=== PATIENT | female | born 1945 | race Hispanic/Latino ===

== ENCOUNTER 2017-07-07 14:47 | Inpatient (IN) | payer OTHER ==
[~2017-07-07] VITALS: Ht 162.6 cm; Wt 113.5 kg
[2017-07-07] MEDS ORDERED: METOPROLOL TARTRATE 1 MG/ML 5ML VIAL IV ONE (15:22)
[2017-07-07 15:56] LABS: BASOPHILS % (AUTO) 0.3 % (0.0-5.0); EOSINOPHILS % (AUTO) 0.4 % (0.0-8.0); HEMATOCRIT 30.7 % (36-48); LYMPHOCYTES % (AUTO) 5.6 % (21.0-51.0); MEAN CORPUSCULAR HEMOGLOBIN 33.8 pg (27.0-33.0); MEAN CORPUSCULAR HGB CONC 33.9 g/dL (32.0-36.0); MEAN CORPUSCULAR VOLUME 99.6 fL (79-99); MONOCYTES % (AUTO) 8.7 % (3.0-13.0); NUCLEATED RED BLOOD CELLS 0.2 % (0.0-0.19); PLATELET COUNT (AUTO) 175 K/uL (130-400); RED BLOOD CELL COUNT(AUTO) 3.08 MIL/uL (4.00-5.50); RED CELL DISTRIBUTION WIDTH 20.5 % (11.0-15.5); WHITE BLOOD COUNT (AUTO) 6.4 K/uL (4.8-10.8)
[2017-07-07 16:11] LABS: INR 1.14 (0.85-1.15); PARTIAL THROMBOPLASTIN TIME 31.4 SEC (26.3-35.5); PROTHROMBIN TIME 11.9 SEC (9.6-11.6)
[2017-07-07 16:12] LABS: CREATININE 2.6 mg/dL (0.5-1.5); POTASSIUM 3.8 mmol/L (3.5-5.1)
[2017-07-07 16:27] LABS: ALBUMIN 2.6 g/dL (3.5-5.0); BILIRUBIN,TOTAL 1.2 mg/dL (0.2-1.0); CREATINE KINASE MB 1.5 ng/mL (0.5-3.6); TOTAL PROTEIN, SERUM 8.2 g/dL (6.0-8.3)
[2017-07-07 16:37] LABS: APPEARANCE,URINE Turbid (CLEAR); BILIRUBIN,URINE Moderate (NEGATIVE); COLOR,URINE Dark Yellow (YELLOW); GLUCOSE, URINE (UA) Negative (NEGATIVE); KETONES,URINE Negative (NEGATIVE); LEUKOCYTE ESTERASE ,URINE Large (NEGATIVE); NITRATE,URINE Positive (NEGATIVE); OCCULT BLOOD,URINE Large (NEGATIVE); PROTEIN,URINE POS 2+ (NEGATIVE)
[2017-07-07 16:45] LABS: BACTERIA,URINE Moderate /HPF (None Seen); WBC,URINE Full Field /HPF (0-1); YEAST,URINE BUDDING Moderate /HPF (None Seen)
[2017-07-07 16:46] LABS: RENAL EPITHELIAL CELLS,URINE Few /LPF (None Seen); TRANSITIONAL EPI CELLS,URINE Rare /LPF (None Seen)
[2017-07-07] MEDS ORDERED: ENOXAPARIN SODIUM 100 MG/1 ML SQ ONE (16:55)
[2017-07-07] MEDS ORDERED: ASPIRIN 325 MG TABLET ONE (16:56)
[2017-07-07] MEDS ORDERED: CEFTRIAXONE SODIUM 1 GM ONE (16:56)
[2017-07-07 18:52] VITALS: BP 113/68
[2017-07-07] MEDS ORDERED: ACETAMINOPHEN 325 MG TAB PO PRN (20:45)
[2017-07-07] MEDS: METOPROLOL TARTRATE 25 MG TAB PO SCH (21:21)
[2017-07-07] MEDS ORDERED: CEFTRIAXONE 1GM/D5W 50ML 50 ML IV SCH (21:45)
[2017-07-07 22:14] LABS: HEMOGLOBIN A1C 7.1 % (4.0-6.0)
[2017-07-07 22:42] LABS: CREATINE KINASE MB 1.7 ng/mL (0.5-3.6); TROPONIN I 0.1 ng/mL (0.00-0.06)
[2017-07-07 23:39] VITALS: BP 101/53
[2017-07-07] MEDS: CEFTRIAXONE SODIUM 1 GM IVP SCH (23:45)
[2017-07-08 03:46] LABS: HEMATOCRIT 30.6 % (36-48); MEAN CORPUSCULAR HEMOGLOBIN 33.7 pg (27.0-33.0); MEAN CORPUSCULAR HGB CONC 33.9 g/dL (32.0-36.0); MEAN CORPUSCULAR VOLUME 99.3 fL (79-99); NUCLEATED RED BLOOD CELLS 0.3 % (0.0-0.19); PLATELET COUNT (AUTO) 180 K/uL (130-400); RED BLOOD CELL COUNT(AUTO) 3.08 MIL/uL (4.00-5.50); RED CELL DISTRIBUTION WIDTH 20.3 % (11.0-15.5); WHITE BLOOD COUNT (AUTO) 5.8 K/uL (4.8-10.8)
[2017-07-08 04:08] VITALS: BP 117/63
[2017-07-08 04:16] LABS: CREATINE KINASE MB 1.6 ng/mL (0.5-3.6); CREATININE 2.7 mg/dL (0.5-1.5); POTASSIUM 3.6 mmol/L (3.5-5.1); THYROID STIMULATING HORMONE 4.37 uIU/mL (0.36-3.74); TROPONIN I 0.08 ng/mL (0.00-0.06)
[2017-07-08 05:04] LABS: ABG BASE EXCESS 1.9 mmol/L (-2.0-3.0); ABG HCO3 28.2 mmol/L (21.0-28.0); ABG OXYGEN SATURATION 97.3 % (95.0-99.0); ABG PCO2 50 mmHg (32-45)
[2017-07-08] MEDS: FUROSEMIDE 10 MG/ML 4ML VIAL IV SCH ×3 (05:30→16:19)
[2017-07-08 07:00] VITALS: BP_SYST 125; BP_SYST 148; BP_DIAS 71; BP_DIAS 78
[2017-07-08] MEDS: ONDANSETRON HCL 4 MG/2 ML VIAL IVP PRN ×2 (08:06→16:19)
[2017-07-08] MEDS: ASPIRIN 325 MG TABLET PO SCH (09:49)
[2017-07-08] MEDS: ENOXAPARIN SODIUM 120 MG/0.8ML SQ SCH (09:50)
[2017-07-08] MEDS: METOPROLOL TARTRATE 25 MG TAB PO SCH ×2 (09:50→21:31)
[2017-07-08 11:00] VITALS: BP 101/67
[2017-07-08 16:00] VITALS: BP 134/89
[2017-07-08 19:30] VITALS: BP 114/79
[2017-07-08 23:13] VITALS: BP 113/59
[2017-07-09] MEDS: FUROSEMIDE 10 MG/ML 4ML VIAL IV SCH ×3 (00:04→17:36)
[2017-07-09] MEDS: CEFTRIAXONE SODIUM 1 GM IVP SCH (00:04)
[2017-07-09 03:57] VITALS: BP 124/44
[2017-07-09 04:10] LABS: HEMATOCRIT 31.6 % (36-48); MEAN CORPUSCULAR HEMOGLOBIN 33.7 pg (27.0-33.0); MEAN CORPUSCULAR HGB CONC 33.7 g/dL (32.0-36.0); MEAN CORPUSCULAR VOLUME 99.9 fL (79-99); NUCLEATED RED BLOOD CELLS 0.9 % (0.0-0.19); PLATELET COUNT (AUTO) 190 K/uL (130-400); RED BLOOD CELL COUNT(AUTO) 3.17 MIL/uL (4.00-5.50); RED CELL DISTRIBUTION WIDTH 20.3 % (11.0-15.5); WHITE BLOOD COUNT (AUTO) 4.9 K/uL (4.8-10.8)
[2017-07-09 04:22] LABS: CREATININE 3.1 mg/dL (0.5-1.5)
[2017-07-09 05:10] LABS: B-TYPE NATRIURETIC PEPTIDE 2670 pg/mL (0-100)
[2017-07-09] MEDS ORDERED: METOPROLOL TARTRATE 50 MG TAB ONE (06:15)
[2017-07-09 07:00] VITALS: BP 106/66
[2017-07-09] MEDS: ENOXAPARIN SODIUM 120 MG/0.8ML SQ SCH (09:00)
[2017-07-09] MEDS: ASPIRIN 325 MG TABLET PO SCH (09:32)
[2017-07-09] MEDS: METOPROLOL TARTRATE 25 MG TAB PO SCH ×2 (09:32→21:21)
[2017-07-09] MEDS ORDERED: 0.9% SODIUM CHLORIDE 250 ML IV BAG IV PRN (09:45)
[2017-07-09] MEDS ORDERED: HEPARIN SODIUM 5000UNIT/ML 1ML VIAL IJ PRN (09:45)
[2017-07-09 11:00] VITALS: BP 103/59
[2017-07-09] MEDS: ALBUMIN (HUMAN) 25% 100 ML IV PRN ×2 (11:03→12:02)
[2017-07-09] MEDS: SODIUM CHLORIDE 0.9% 1000ML 1,000 ML IV PRN (12:03)
[2017-07-09] MEDS: HEPARIN SODIUM 5000UNIT/ML 1ML VIAL IJ PRN (12:04)
[2017-07-09] MEDS ORDERED: CEFTAZIDIME 1GM+NS 50ML 50 ML IV SCH (14:45)
[2017-07-09] MEDS ORDERED: CEFTAZIDIME PENTAHYDRATE 1 GM/VIAL IVP SCH (14:45)
[2017-07-09 16:00] VITALS: BP 114/70
[2017-07-09 19:39] VITALS: BP 120/59
[2017-07-09] MEDS: IPRATROPIUM 0.5 MG/2.5 ML INH IH SCH ×2 (20:05→23:22)
[2017-07-09] MEDS: DOXYCYCLINE HYCLATE 100 MG TABLET PO SCH (21:21)
[2017-07-09 23:22] VITALS: BP 102/63
[2017-07-10] MEDS: FUROSEMIDE 10 MG/ML 4ML VIAL IV SCH (00:10)
[2017-07-10 03:46] LABS: ABG BASE EXCESS 0.3 mmol/L (-2.0-3.0); ABG HCO3 25.7 mmol/L (21.0-28.0); ABG OXYGEN SATURATION 93.1 % (95.0-99.0); ABG PCO2 44 mmHg (32-45)
[2017-07-10 04:03] VITALS: BP 99/62
[2017-07-10 04:07] LABS: INR 1.11 (0.85-1.15); PARTIAL THROMBOPLASTIN TIME 32.4 SEC (26.3-35.5); PROTHROMBIN TIME 11.6 SEC (9.6-11.6)
[2017-07-10 04:13] LABS: HEMATOCRIT 28.2 % (36-48); MEAN CORPUSCULAR HEMOGLOBIN 33.7 pg (27.0-33.0); MEAN CORPUSCULAR HGB CONC 33.9 g/dL (32.0-36.0); MEAN CORPUSCULAR VOLUME 99.7 fL (79-99); PLATELET COUNT (AUTO) 153 K/uL (130-400); RED BLOOD CELL COUNT(AUTO) 2.83 MIL/uL (4.00-5.50); RED CELL DISTRIBUTION WIDTH 21.2 % (11.0-15.5); WHITE BLOOD COUNT (AUTO) 4.1 K/uL (4.8-10.8)
[2017-07-10 04:21] LABS: ALBUMIN 2.9 g/dL (3.5-5.0); CREATININE 2.5 mg/dL (0.5-1.5); MAGNESIUM 1.9 mg/dL (1.80-2.40); POTASSIUM 3.5 mmol/L (3.5-5.1); TOTAL PROTEIN, SERUM 7.5 g/dL (6.0-8.3)
[2017-07-10] MEDS: IPRATROPIUM 0.5 MG/2.5 ML INH IH SCH ×3 (07:10→19:06)
[2017-07-10 08:00] VITALS: BP 88/55
[2017-07-10] MEDS ORDERED: ASPIRIN 325 MG TABLET PO SCH (09:00)
[2017-07-10] MEDS: METOPROLOL TARTRATE 25 MG TAB PO SCH ×2 (09:00→20:59)
[2017-07-10] MEDS: DOXYCYCLINE HYCLATE 100 MG TABLET PO SCH ×2 (09:51→20:58)
[2017-07-10] MEDS: ENOXAPARIN SODIUM 120 MG/0.8ML SQ SCH (09:52)
[2017-07-10] MEDS: ASPIRIN 81 MG EC TAB PO SCH (09:58)
[2017-07-10 12:00] VITALS: BP 86/52
[2017-07-10] MEDS: MIDODRINE HCL 5 MG TABLET PO SCH ×2 (13:51→20:58)
[2017-07-10 16:00] VITALS: BP 111/66
[2017-07-10 19:56] VITALS: BP 111/65
[2017-07-10 23:59] VITALS: BP 92/52
[2017-07-11] MEDS: IPRATROPIUM 0.5 MG/2.5 ML INH IH SCH ×4 (00:18→20:04)
[2017-07-11 03:42] LABS: HEMATOCRIT 28.4 % (36-48); MEAN CORPUSCULAR HEMOGLOBIN 33.9 pg (27.0-33.0); MEAN CORPUSCULAR VOLUME 99.9 fL (79-99); NUCLEATED RED BLOOD CELLS 0.7 % (0.0-0.19); PLATELET COUNT (AUTO) 152 K/uL (130-400); RED BLOOD CELL COUNT(AUTO) 2.84 MIL/uL (4.00-5.50); WHITE BLOOD COUNT (AUTO) 4.6 K/uL (4.8-10.8)
[2017-07-11 03:54] VITALS: BP 100/51
[2017-07-11 03:56] LABS: MAGNESIUM 1.9 mg/dL (1.80-2.40); POTASSIUM 3.6 mmol/L (3.5-5.1)
[2017-07-11 08:00] VITALS: BP 103/53
[2017-07-11] MEDS ORDERED: MIDODRINE HCL 5 MG TABLET PO SCH (09:00)
[2017-07-11] MEDS: METOPROLOL TARTRATE 25 MG TAB PO SCH ×2 (09:00→21:00)
[2017-07-11] MEDS: DOXYCYCLINE HYCLATE 100 MG TABLET PO SCH ×2 (09:29→21:13)
[2017-07-11] MEDS: MIDODRINE HCL 5 MG TABLET PO SCH ×3 (09:29→21:13)
[2017-07-11] MEDS: ASPIRIN 81 MG EC TAB PO SCH (09:29)
[2017-07-11] MEDS: ENOXAPARIN SODIUM 120 MG/0.8ML SQ SCH (09:30)
[2017-07-11] MEDS: ALBUMIN (HUMAN) 25% 100 ML IV PRN ×2 (10:44→11:22)
[2017-07-11 12:02] VITALS: BP 109/72
[2017-07-11 16:00] VITALS: BP 115/57
[2017-07-11 19:00] VITALS: BP 109/62
[2017-07-11 23:00] VITALS: BP 103/55
[2017-07-12] MEDS: IPRATROPIUM 0.5 MG/2.5 ML INH IH SCH ×4 (00:09→18:08)
[2017-07-12 03:00] VITALS: BP 117/64
[2017-07-12 03:27] LABS: HEMATOCRIT 28.8 % (36-48); MEAN CORPUSCULAR HEMOGLOBIN 33.7 pg (27.0-33.0); MEAN CORPUSCULAR HGB CONC 33.7 g/dL (32.0-36.0); MEAN CORPUSCULAR VOLUME 100.1 fL (79-99); NUCLEATED RED BLOOD CELLS 0.6 % (0.0-0.19); PLATELET COUNT (AUTO) 129 K/uL (130-400); RED BLOOD CELL COUNT(AUTO) 2.88 MIL/uL (4.00-5.50); RED CELL DISTRIBUTION WIDTH 20.9 % (11.0-15.5); WHITE BLOOD COUNT (AUTO) 5.7 K/uL (4.8-10.8)
[2017-07-12 03:38] LABS: CREATININE 2.5 mg/dL (0.5-1.5); POTASSIUM 3.8 mmol/L (3.5-5.1)
[2017-07-12 07:58] VITALS: BP 121/64
[2017-07-12] MEDS: DOXYCYCLINE HYCLATE 100 MG TABLET PO SCH ×2 (09:33→20:39)
[2017-07-12] MEDS: MIDODRINE HCL 5 MG TABLET PO SCH ×3 (09:34→20:39)
[2017-07-12] MEDS: METOPROLOL TARTRATE 25 MG TAB PO SCH ×2 (09:34→20:39)
[2017-07-12] MEDS: ASPIRIN 81 MG EC TAB PO SCH (09:34)
[2017-07-12] MEDS: ENOXAPARIN SODIUM 120 MG/0.8ML SQ SCH (09:35)
[2017-07-12] MEDS ORDERED: FERS325 PO (10:45)
[2017-07-12] MEDS ORDERED: GLUC1KIT6 IJ (10:45)
[2017-07-12] MEDS ORDERED: DOCU100C33 PO (10:45)
[2017-07-12] MEDS ORDERED: APIX5TAB4 PO (10:45)
[2017-07-12] MEDS ORDERED: FAMO20TA8 PO (10:45)
[2017-07-12] MEDS ORDERED: BISA10S PR (10:45)
[2017-07-12] MEDS ORDERED: ZOLP5TAB8 PO (10:45)
[2017-07-12] MEDS ORDERED: IPRA3AMP4 IH (10:45)
[2017-07-12] MEDS ORDERED: FURO80TA3 PO (10:45)
[2017-07-12 11:47] VITALS: BP 101/43
[2017-07-12 16:00] VITALS: BP 96/56
[2017-07-12 20:04] VITALS: BP 121/61
[2017-07-12] MEDS: DOCUSATE SODIUM 100 MG CAP PO SCH (20:39)
[2017-07-13] VITALS (7 sets, daily range): BP systolic 119–144; BP diastolic 58–80
[2017-07-13] MEDS: IPRATROPIUM 0.5 MG/2.5 ML INH IH SCH ×5 (00:34→23:07)
[2017-07-13 04:27] LABS: HEMATOCRIT 29.7 % (36-48); MEAN CORPUSCULAR HEMOGLOBIN 34.6 pg (27.0-33.0); MEAN CORPUSCULAR HGB CONC 34.6 g/dL (32.0-36.0); NUCLEATED RED BLOOD CELLS 0.3 % (0.0-0.19); PLATELET COUNT (AUTO) 142 K/uL (130-400); RED BLOOD CELL COUNT(AUTO) 2.97 MIL/uL (4.00-5.50); RED CELL DISTRIBUTION WIDTH 21.1 % (11.0-15.5); WHITE BLOOD COUNT (AUTO) 6.3 K/uL (4.8-10.8)
[2017-07-13 04:36] LABS: CREATININE 3.1 mg/dL (0.5-1.5); POTASSIUM 3.3 mmol/L (3.5-5.1)
[2017-07-13] MEDS: MIDODRINE HCL 5 MG TABLET PO SCH ×3 (08:47→20:31)
[2017-07-13] MEDS: ASPIRIN 81 MG EC TAB PO SCH (08:47)
[2017-07-13] MEDS: DOXYCYCLINE HYCLATE 100 MG TABLET PO SCH ×2 (08:47→20:30)
[2017-07-13] MEDS: DOCUSATE SODIUM 100 MG CAP PO SCH ×2 (08:47→20:30)
[2017-07-13] MEDS: ENOXAPARIN SODIUM 120 MG/0.8ML SQ SCH (08:48)
[2017-07-13] MEDS: METOPROLOL TARTRATE 25 MG TAB PO SCH ×2 (08:49→20:31)
[2017-07-13] MEDS: METHYLPREDNISOLONE SOD SUCC 40MG/ML 1ML IVP SCH ×2 (11:02→18:04)
[2017-07-13 12:03] LABS: ABG BASE EXCESS 5.8 mmol/L (-2.0-3.0); ABG HCO3 32.7 mmol/L (21.0-28.0); ABG OXYGEN SATURATION 97.9 % (95.0-99.0); ABG PCO2 57 mmHg (32-45)
[2017-07-13] MEDS: SODIUM CHLORIDE 0.9% 1000ML 1,000 ML IV PRN (16:31)
[2017-07-13] MEDS: HEPARIN SODIUM 5000UNIT/ML 1ML VIAL IJ PRN (16:34)
[2017-07-14] MEDS: METHYLPREDNISOLONE SOD SUCC 40MG/ML 1ML IVP SCH (03:13)
[2017-07-14 03:50] VITALS: BP 132/82
[2017-07-14 04:15] LABS: CREATININE 2.5 mg/dL (0.5-1.5); POTASSIUM 3.6 mmol/L (3.5-5.1)
[2017-07-14] MEDS: IPRATROPIUM 0.5 MG/2.5 ML INH IH SCH ×3 (06:57→18:03)
[2017-07-14 07:05] VITALS: BP 134/77
[2017-07-14] MEDS: DOCUSATE SODIUM 100 MG CAP PO SCH ×2 (10:02→20:40)
[2017-07-14] MEDS: METOPROLOL TARTRATE 25 MG TAB PO SCH ×2 (10:03→20:40)
[2017-07-14] MEDS: MIDODRINE HCL 5 MG TABLET PO SCH ×3 (10:03→20:40)
[2017-07-14] MEDS: ASPIRIN 81 MG EC TAB PO SCH (10:03)
[2017-07-14] MEDS: DOXYCYCLINE HYCLATE 100 MG TABLET PO SCH ×2 (10:03→20:40)
[2017-07-14] MEDS: BISACODYL 10 MG SUPP.RECT RC SCH (10:46)
[2017-07-14] MEDS: APIXABAN 5 MG TABLET PO SCH ×2 (10:46→20:40)
[2017-07-14 10:51] VITALS: BP 120/68
[2017-07-14] MEDS: IPRATROPIUM/ALBUTEROL SULFATE 3 ML SOLUTION IH SCH ×3 (10:57→23:09)
[2017-07-14 15:54] VITALS: BP 102/73
[2017-07-14 19:53] VITALS: BP 102/68
[2017-07-14] MEDS: ZOLPIDEM TARTRATE 5 MG TAB PO SCH (20:40)
[2017-07-15] VITALS (8 sets, daily range): BP systolic 94–114; BP diastolic 53–64
[2017-07-15 04:36] LABS: HEMATOCRIT 29.5 % (36-48); MEAN CORPUSCULAR HEMOGLOBIN 33.7 pg (27.0-33.0); MEAN CORPUSCULAR HGB CONC 33.7 g/dL (32.0-36.0); MEAN CORPUSCULAR VOLUME 99.9 fL (79-99); NUCLEATED RED BLOOD CELLS 0.1 % (0.0-0.19); PLATELET COUNT (AUTO) 148 K/uL (130-400); RED BLOOD CELL COUNT(AUTO) 2.96 MIL/uL (4.00-5.50); RED CELL DISTRIBUTION WIDTH 21.3 % (11.0-15.5); WHITE BLOOD COUNT (AUTO) 9.7 K/uL (4.8-10.8)
[2017-07-15 04:51] LABS: POTASSIUM 3.5 mmol/L (3.5-5.1)
[2017-07-15] MEDS: IPRATROPIUM 0.5 MG/2.5 ML INH IH SCH ×2 (06:00)
[2017-07-15] MEDS: IPRATROPIUM/ALBUTEROL SULFATE 3 ML SOLUTION IH SCH ×4 (06:03→23:35)
[2017-07-15] MEDS: DOCUSATE SODIUM 100 MG CAP PO SCH ×2 (09:44→21:45)
[2017-07-15] MEDS: ASPIRIN 81 MG EC TAB PO SCH (09:44)
[2017-07-15] MEDS: FERROUS SULFATE 325 MG TABLET.DR PO SCH (09:45)
[2017-07-15] MEDS: DOXYCYCLINE HYCLATE 100 MG TABLET PO SCH ×2 (09:45→21:45)
[2017-07-15] MEDS: MIDODRINE HCL 5 MG TABLET PO SCH ×3 (09:45→21:44)
[2017-07-15] MEDS: APIXABAN 5 MG TABLET PO SCH ×2 (09:45→21:45)
[2017-07-15] MEDS: METOPROLOL TARTRATE 25 MG TAB PO SCH ×3 (09:45→21:44)
[2017-07-15] MEDS: BISACODYL 10 MG SUPP.RECT RC SCH (09:51)
[2017-07-15] MEDS: ZOLPIDEM TARTRATE 5 MG TAB PO SCH (21:45)
[2017-07-16 03:51] VITALS: BP 124/61
[2017-07-16 04:29] LABS: CREATININE 3.3 mg/dL (0.5-1.5); POTASSIUM 3.7 mmol/L (3.5-5.1)
[2017-07-16] MEDS: ONDANSETRON HCL 4 MG/2 ML VIAL IVP PRN (05:52)
[2017-07-16] MEDS: IPRATROPIUM/ALBUTEROL SULFATE 3 ML SOLUTION IH SCH ×4 (05:58→23:42)
[2017-07-16 07:00] VITALS: BP 139/84
[2017-07-16] MEDS: MIDODRINE HCL 5 MG TABLET PO SCH ×3 (09:00→20:38)
[2017-07-16] MEDS: DOCUSATE SODIUM 100 MG CAP PO SCH ×2 (09:00→20:37)
[2017-07-16] MEDS: APIXABAN 5 MG TABLET PO SCH ×2 (09:00→20:37)
[2017-07-16] MEDS: FERROUS SULFATE 325 MG TABLET.DR PO SCH (09:00)
[2017-07-16] MEDS: DOXYCYCLINE HYCLATE 100 MG TABLET PO SCH ×2 (09:00→20:37)
[2017-07-16] MEDS: ASPIRIN 81 MG EC TAB PO SCH (09:00)
[2017-07-16] MEDS: METOPROLOL TARTRATE 25 MG TAB PO SCH ×3 (09:00→20:38)
[2017-07-16] MEDS ORDERED: DIGOXIN 250 MCG/ML 2ML AMP IV SCH (10:00)
[2017-07-16 11:00] VITALS: BP 131/78
[2017-07-16 16:00] VITALS: BP 130/72
[2017-07-16 19:15] VITALS: BP 133/63
[2017-07-16] MEDS: ZOLPIDEM TARTRATE 5 MG TAB PO SCH (20:38)
[2017-07-16] MEDS: IPRATROPIUM 0.5 MG/2.5 ML INH IH SCH ×2 (23:42)
[2017-07-16 23:47] VITALS: BP 124/75
[2017-07-17 03:42] VITALS: BP 123/61
[2017-07-17 04:54] LABS: CREATININE 2.2 mg/dL (0.5-1.5); POTASSIUM 4.5 mmol/L (3.5-5.1)
[2017-07-17] MEDS: IPRATROPIUM/ALBUTEROL SULFATE 3 ML SOLUTION IH SCH ×2 (05:52→11:17)
[2017-07-17 07:26] VITALS: BP 112/64
[2017-07-17] MEDS: DOCUSATE SODIUM 100 MG CAP PO SCH (08:50)
[2017-07-17] MEDS: FERROUS SULFATE 325 MG TABLET.DR PO SCH (08:50)
[2017-07-17] MEDS: ASPIRIN 81 MG EC TAB PO SCH (08:50)
[2017-07-17] MEDS: DOXYCYCLINE HYCLATE 100 MG TABLET PO SCH (08:50)
[2017-07-17] MEDS: METOPROLOL TARTRATE 25 MG TAB PO SCH (08:50)
[2017-07-17] MEDS: APIXABAN 5 MG TABLET PO SCH (08:50)
[2017-07-17] MEDS: MIDODRINE HCL 5 MG TABLET PO SCH ×2 (08:54→13:26)
[2017-07-17] MEDS: BISACODYL 10 MG SUPP.RECT RC SCH (08:55)
[2017-07-17 11:28] VITALS: BP 105/62
== END 2017-07-17 14:45 | DRG 291 ==
LOC: EDH 14:47 → EDHIP 17:05 → OBSVTOIN 17:05 → 2AH 18:25
PROVIDERS: ADMIT Internal Medicine; ATTEND Internal Medicine
PROC: 5A09357 Assistance with Respiratory Ventilation, Less than 24 Consecutive Hours, Continuous Positive Airway Pressure (ICD-10-PCS; 2017-07-07)
PROC: 5A09357 Assistance with Respiratory Ventilation, Less than 24 Consecutive Hours, Continuous Positive Airway Pressure (ICD-10-PCS; 2017-07-08)
PROC: 5A1D70Z Performance of Urinary Filtration, Intermittent, Less than 6 Hours Per Day (ICD-10-PCS; principal; 2017-07-09)
PROC: 5A09357 Assistance with Respiratory Ventilation, Less than 24 Consecutive Hours, Continuous Positive Airway Pressure (ICD-10-PCS; 2017-07-09)
PROC: 5A09357 Assistance with Respiratory Ventilation, Less than 24 Consecutive Hours, Continuous Positive Airway Pressure (ICD-10-PCS; 2017-07-10)
PROC: 5A1D70Z Performance of Urinary Filtration, Intermittent, Less than 6 Hours Per Day (ICD-10-PCS; 2017-07-11)
PROC: 5A09357 Assistance with Respiratory Ventilation, Less than 24 Consecutive Hours, Continuous Positive Airway Pressure (ICD-10-PCS; 2017-07-11)
PROC: 5A09357 Assistance with Respiratory Ventilation, Less than 24 Consecutive Hours, Continuous Positive Airway Pressure (ICD-10-PCS; 2017-07-12)
PROC: 5A1D70Z Performance of Urinary Filtration, Intermittent, Less than 6 Hours Per Day (ICD-10-PCS; 2017-07-13)
PROC: 5A09357 Assistance with Respiratory Ventilation, Less than 24 Consecutive Hours, Continuous Positive Airway Pressure (ICD-10-PCS; 2017-07-13)
PROC: 5A09357 Assistance with Respiratory Ventilation, Less than 24 Consecutive Hours, Continuous Positive Airway Pressure (ICD-10-PCS; 2017-07-14)
PROC: 5A09357 Assistance with Respiratory Ventilation, Less than 24 Consecutive Hours, Continuous Positive Airway Pressure (ICD-10-PCS; 2017-07-15)
PROC: 5A1D70Z Performance of Urinary Filtration, Intermittent, Less than 6 Hours Per Day (ICD-10-PCS; 2017-07-16)
PROC: 5A09357 Assistance with Respiratory Ventilation, Less than 24 Consecutive Hours, Continuous Positive Airway Pressure (ICD-10-PCS; 2017-07-16)
DX: I13.2 Hypertensive heart and chronic kidney disease with heart failure and with stage 5 chronic kidney disease, or end stage renal disease (principal); N18.6 End stage renal disease; J96.21 Acute and chronic respiratory failure with hypoxia; E46 Unspecified protein-calorie malnutrition; E11.21 Type 2 diabetes mellitus with diabetic nephropathy; E66.01 Morbid (severe) obesity due to excess calories; E87.2 Acidosis; I07.1 Rheumatic tricuspid insufficiency; E11.65 Type 2 diabetes mellitus with hyperglycemia; I48.2 Chronic atrial fibrillation; I50.33 Acute on chronic diastolic (congestive) heart failure; J96.22 Acute and chronic respiratory failure with hypercapnia; N39.0 Urinary tract infection, site not specified; J98.11 Atelectasis; J44.1 Chronic obstructive pulmonary disease with (acute) exacerbation; Z68.41 Body mass index [BMI] 40.0-44.9, adult; D64.9 Anemia, unspecified; E11.22 Type 2 diabetes mellitus with diabetic chronic kidney disease; E78.5 Hyperlipidemia, unspecified; G47.33 Obstructive sleep apnea (adult) (pediatric); I25.10 Atherosclerotic heart disease of native coronary artery without angina pectoris; I42.9 Cardiomyopathy, unspecified; I95.1 Orthostatic hypotension; Z79.01 Long term (current) use of anticoagulants; Z86.73 Personal history of transient ischemic attack (TIA), and cerebral infarction without residual deficits; Z87.01 Personal history of pneumonia (recurrent); Z90.710 Acquired absence of both cervix and uterus; Z91.19 Patient's noncompliance with other medical treatment and regimen; Z99.2 Dependence on renal dialysis; Z99.81 Dependence on supplemental oxygen
CPT/HCPCS: 36415; 36600; 71045; 71250; 80048; 80053; 81001; 82550; 82553; 82803; 82948; 83036; 83605; 83735; 83874; 83880; 84443; 84484; 85025; 85027; 85610; 85730; 87088; 87186; 90935; 92610; 93005; 93306; 94640; 94660; 94664; 97039; 99291; A4218; J0696; J0713; J1160; J1644; J1650; J1940; J2405; J2920; J3490; J7030; P9046